=== PATIENT | female | born 1980 | race Caucasian/White ===

== ENCOUNTER → 2021-12-10 09:41 | Outpatient (CLI) | payer OTHER, SELFPAY ==
[2021-12-10 11:17] LABS: COVID19 -Nasal RAPID Negative (Negative)
== END ==
PROVIDERS: Referring Provider Internal Medicine; Visit Provider Internal Medicine
DX: J30.9 Allergic rhinitis, unspecified (principal); M51.36 Other intervertebral disc degeneration, lumbar region; M20.11 Hallux valgus (acquired), right foot; M20.12 Hallux valgus (acquired), left foot; M77.31 Calcaneal spur, right foot; M13.80 Other specified arthritis, unspecified site; Z20.822 Contact with and (suspected) exposure to COVID-19; Z87.891 Personal history of nicotine dependence
CPT/HCPCS: 71046; 72100; 73630; 87635; 94060; C9803

== ENCOUNTER → 2021-12-10 09:49 | Outpatient (CLI) | payer OTHER, SELFPAY ==
--- NOTE | 2021-12-16 11:02 | PM.PFT.1 ---
Pulmonary Function Test Referral & Results Date Patient Seen: 12/10/21 Requesting provider: Marty Su Results: The spirometry demonstrates an FVC of 3.55 L which is 87% of predicted. The FEV1 was measured at 2.90 L which is 88% of predicted. The FEV1/FVC ratio was 82 which is 99% of predicted. Following the administration of bronchodilator there was a 20% improvement in FEF 25-75%. Interpretation: This study demonstrates probably normal forced spirometry. There is however evidence of improvement in small airway flow after bronchodilator administration based on improvement in FEF 25-75% as above, this suggest the possibility of very mild obstructive lung disease Clinical correlation suggested
== END ==
PROVIDERS: Referring Provider Chiropractor; Visit Provider Chiropractor
DX: J30.9 Allergic rhinitis, unspecified (principal); M13.80 Other specified arthritis, unspecified site; Z87.891 Personal history of nicotine dependence
CPT/HCPCS: 94060

== ENCOUNTER → 2021-12-10 09:56 | Outpatient (CLI) | payer OTHER, SELFPAY ==
--- NOTE | 2021-12-10 10:01 | DI.RAD.S_ITS ---
PROCEDURE: XR LUMBAR SPINE 2-3V INDICATIONS: ALLERGIC RHINITIS TECHNIQUE: 3 views of the lumbar spine were acquired. COMPARISON: None. FINDINGS: Bones: 5 mhr-dei-zlbztad vertebrae are present. There is normal bony alignment. Degenerative endplate changes and bilateral facet arthrosis at L4-5 and L5-S1 levels are seen. No vertebral body compression fractures. No suspicious bony lesions. Soft tissues: Overlying bowel gas pattern is normal. No suspicious soft tissue calcifications. IMPRESSION: Mild degenerative disc disease in lower lumbar spine. No compression fracture or spondylolisthesis. Dictated by: Zack Marie M.D. on 12/10/2021 at 11:06 Approved by: Zack Marie M.D. on 12/10/2021 at 11:08
--- NOTE | 2021-12-10 10:02 | DI.RAD.S_ITS ---
PROCEDURE: XR FOOT LT MIN 3V INDICATIONS: ALLERGIC RHINITIS TECHNIQUE: 3 views of the foot were acquired. COMPARISON: None. FINDINGS: Bones: Mild hallux valgus is seen. No fractures or dislocations. No suspicious bony lesions. Tiny plantar calcaneal enthesophyte is noted. Soft tissues: No tibiotalar joint effusion. Achilles tendon appears normal. IMPRESSION: Mild hallux valgus and tiny calcaneal enthesophyte. No fracture or dislocation. Dictated by: Zack Marie M.D. on 12/10/2021 at 11:09 Approved by: Zack Marie M.D. on 12/10/2021 at 11:09
--- NOTE | 2021-12-10 10:02 | DI.RAD.S_ITS ---
PROCEDURE: XR CHEST 2V INDICATIONS: ALLERGIC RHINITIS TECHNIQUE: 2 views of the chest were acquired. COMPARISON: None. FINDINGS: Surgical changes and devices: None. Lungs and pleura: Lungs are clear. No pleural effusions or pneumothorax. Mediastinum: Mediastinal contours are normal. Heart size is normal. Bones and chest wall: No suspicious bony abnormalities. Soft tissues appear unremarkable. IMPRESSION: No acute cardiopulmonary pathology. Dictated by: Zack Marie M.D. on 12/10/2021 at 11:09 Approved by: Zack Marie M.D. on 12/10/2021 at 11:13
--- NOTE | 2021-12-10 10:02 | DI.RAD.S_ITS ---
PROCEDURE: XR FOOT RT MIN 3V INDICATIONS: ALLERGIC RHINITIS TECHNIQUE: 3 views of the foot were acquired. COMPARISON: None. FINDINGS: Bones: There is rtqs-[id number] hallux valgus. No fractures or dislocations. No suspicious bony lesions. Well-defined plantar calcaneal enthesophyte is seen. Soft tissues: No tibiotalar joint effusion. Achilles tendon appears normal. IMPRESSION: Beup-cu-dstfzruj hallux valgus. No fracture or dislocation. Well-defined calcaneal enthesophyte. Dictated by: Zack Marie M.D. on 12/10/2021 at 11:08 Approved by: Zack Marie M.D. on 12/10/2021 at 11:09
== END ==
PROVIDERS: Referring Provider Chiropractor; Visit Provider Chiropractor
DX: J30.9 Allergic rhinitis, unspecified (principal); M13.80 Other specified arthritis, unspecified site; M51.36 Other intervertebral disc degeneration, lumbar region; M20.11 Hallux valgus (acquired), right foot; M20.12 Hallux valgus (acquired), left foot; M77.31 Calcaneal spur, right foot
CPT/HCPCS: 71046; 72100; 73630